=== PATIENT | male | born 1975 | race Caucasian/White ===

== ENCOUNTER 2025-06-27 16:47 | Emergency (ER) | payer MEDICAID ==
[~2025-06-27] VITALS: Ht 182.9 cm; Wt 83.0 kg
[2025-06-27 16:55] VITALS: BP 118/75; PULSE 85; RESP 16; TEMP 98.7; O2SAT 98
--- NOTE | 2025-06-27 19:10 | Physician Documentation ---
History of Present Illness ~ Chief Complaint: Eye Pain Stated Complaint: LT EYE PAIN Time Seen by MD: 18:01 HPI 49-year-old male presents to the ED with a complaint of left eye pain after reportedly getting a piece of wood dust in his eye yesterday. 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 Says this morning when he woke up his eye was stuck and then when he opened it causes increased pain reports blurry vision and pain with the blinking. He would state that he attempted to wash out his eye thoroughly Day of Onset: Jun 27, 2025 Medication Reconciliation Allergies: Coded Allergies: No Known Allergies (Unverified , 06/27/25) Scheduled Erythromycin Base Opth. Ointment* (Erythromycin Opth. Ointment*), 1 APPLIC LEFTEYE Q4HWA Review of Systems All Other Systems at this time: Reviewed and Negative ROS As stated above in the HPI, otherwise all systems are reviewed and negative. Physical Exam Vital Signs: Temperature: 98.7, Heart Rate: 85, Respiratory Rate: 16, BP: 118/75, Pulse Oximetry: 98, Weight: 83.000 Oxygen Flow Rate: 0 Physical Exam General: Alert, no apparent distress. HEENT: PERRL, EOMI, no injection, moist mucous membranes. Left eye conjunctiva injected and sclerae Skin: Normal color, warm and dry. No edema, no ecchymosis. Procedures Eye Procedure Alcaine Drops Administered: Yes Foreign Body/Rust Ring Removal: other Reexamination after removal: abrasion Cyclogel Drops Administered: left eye Progress Results/Orders Results/Orders Completed Orders - DEWAYNE HERNANDEZ NP Proparacaine Ophth Solution (Alcaine Oph (06/27/25 18:55) Medications Received in ER Medications (Trade) Dose Ordered Sig/Krystle Route PRN Reason Start Time Stop Time Status Last Admin Dose Admin (Alcaine ophth solution) 2 drop ONCE ONCE EACHEYE 06/27/25 18:55 06/27/25 18:56 DC 06/27/25 19:20 2 DROP Vital Signs 06/27/25 16:55 Temp 98.7 Pulse 85 Resp 16 B/P (MAP) 118/75 Pulse Ox 98 O2 Flow Rate 0 Departure Disposition: 01 HOME / SELF CARE / HOMELESS Impression: Primary Impression: Corneal abrasion Discharge Instructions: Corneal Abrasion Departure Forms: Excuse form Work or School Excused From: Work Excuse beginning now through the following date: Jun 29, 2025 Referrals: NO PRIMARY CARE PROVIDER (PCP) Prescriptions Erythromycin Base Opth. Ointment* (Erythromycin Opth. Ointment*) 1 Gm Tube 1 APPLIC RAVI Q4HWA, #1 EACH Prov: DEWAYNE HERNANDEZ NP 06/27/25 Signature Scribe Signature: g Attestation: Scribed for Dewayne Hernandez Sewing Trimmer by Dewayne Castillo NP . 06/27/25 19:12 DEWAYNE HERNANDEZ NP Jun 27, 2025 19:10
[2025-06-27] MEDS ORDERED: ERYT1OIN6 LEFTEYE (19:13)
[2025-06-27] MEDS: proparacaine 0.5% ophthalmic drops 15ml EACHEYE ONE (19:20)
== END 2025-06-27 19:30 | disposition home or self-care (01) ==
LOC: ER 16:48
DX: S05.02XA Injury of conjunctiva and corneal abrasion without foreign body, left eye, initial encounter (principal); X58.XXXA Exposure to other specified factors, initial encounter; Y93.89 Activity, other specified; Y92.89 Other specified places as the place of occurrence of the external cause; Y99.8 Other external cause status
CPT/HCPCS: 65220; 99283; 99284

== ENCOUNTER 2025-11-02 17:10 | Emergency (ER) | payer MEDICAID, OTHER ==
[~2025-11-02] VITALS: Ht 182.9 cm; Wt 100.0 kg
[2025-11-02 17:18] VITALS: BP 124/71; PULSE 85; O2SAT 100
--- NOTE | 2025-11-02 17:54 | RADIOLOGY REPORT ---
EXAM: DI ANKLE, COMPLETE(3VW MIN) HISTORY: ANKLE PAIN RIGHT COMPARISON: None TECHNIQUE: DI ANKLE, COMPLETE(3VW MIN) FINDINGS: Linear density through the calcaneus. No dislocation. IMPRESSION: 1. Linear density through the calcaneus may be artifactual or a nondisplaced fracture. Correlation with CT suggested.
--- NOTE | 2025-11-02 17:56 | RADIOLOGY REPORT ---
CLINICAL HISTORY: KNEE PAIN LEFT TECHNIQUE: 3 views of the right knee were obtained. COMPARISON: None FINDINGS: No acute fracture or dislocation is seen. No joint effusion is evident. There are no significant degenerative changes. IMPRESSION: NO ACUTE RADIOGRAPHIC ABNORMALITY OF THE RIGHT KNEE.
--- NOTE | 2025-11-02 19:00 | Physician Documentation ---
History of Present Illness ~ Chief Complaint: Knee Pain Stated Complaint: FALL Time Seen by MD: 18:48 HPI This is a 49-year-old male who presents with right ankle/heel pain and left knee pain after he fell from a single story roof landing on his feet, patient reports he sustained no injuries in the fall and did not strike his head. Patient reports that he was unable to walk or bear weight after the fall due to pain. Tetanus witin 5 years: No Medication Reconciliation Allergies: Coded Allergies: No Known Allergies (Unverified , 11/02/25) Scheduled PRN Hydrocodone Bit/Acetaminophen (Hydrocodon-Acetaminophn 10-325 tablet), 1 TAB PO QID PRN PRN for pain Past Medical History Past Medical History: No Pertinent History Review of Systems ROS As stated above in the HPI, otherwise all systems are reviewed and negative. Physical Exam Vital Signs: Temperature: 98.0, Source: Oral, Heart Rate: 85, Respiratory Rate: 18, BP: 124/71, Pulse Oximetry: 100, Weight: 100.000 Oxygen Flow Rate: 0 Physical Exam VITALS: Reviewed and as above. GENERAL: Alert, nontoxic appearing, no apparent distress. HEENT: PERRLA, EOMI, no C-spine tenderness RESPIRATORY: No increased work of breathing, no respiratory distress, speaking in full clear sentences, clear lung sounds in all mukherjee CHEST: Nontender to palpation CV: Regular rate and rhythm no murmur. Brisk capillary refill to bilateral feet, pedal pulses intact bilaterally BACK: Left lower lumbar tender to palpation, no central spinal tenderness, no step-offs, no crepitus GI: Soft, nontender, no rebound, no guarding, bowel sounds present MUSCULOSKELETAL: Swelling to left knee with medial aspect more swollen than lateral aspect, tenderness to medial and posterior aspect of the left knee, tenderness to right ankle and heel, no tenderness to forefoot SKIN: No ecchymosis or erythema to knees or feet NEURO: Sensation intact to bilateral lower extremities Progress Results/Orders Results/Orders Orders - CHELSEA BURR Ct Lower Extremity (11/02/25 19:15) Hip Unilateral 2-3 Views (11/02/25 19:32) Lumbar Spine Limited (11/02/25 19:32) Ortho Orders (11/02/25 20:48) Completed Orders - AMINAH,CHELSEA W [employer] Hydrocodone/Apap 10/325 ([place] 10/325mg (11/02/25 19:00) Ct Lower Extremity (11/02/25 19:15) Hip Unilateral 2-3 Views (11/02/25 19:32) Lumbar Spine Limited (11/02/25 19:32) Ketorolac Trometh 15mg/Ml Vial (Toradol (11/02/25 20:50) Vital Signs 11/02/25 11/02/25 11/02/25 11/02/25 17:18 19:08 20:59 21:09 Temp 98.0 98.0 Pulse 85 Resp 18 20 18 B/P (MAP) 124/71 Pulse Ox 100 O2 Flow Rate 0 EKG/XRAY/CT/US/VASC/MRI Bone/Soft Tissue X-Ray (Spine) : Additional Comment Exam: LUMBAR SPINE LIMITED CLINICAL HISTORY: Left lower lumbar back pain post fall from roof TECHNIQUE: 3 views of the lumbar spine were obtained. COMPARISON: None FINDINGS: The alignment of the lumbar spine is normal. The vertebral body heights and intervertebral disc spaces are well maintained. No acute fracture or dislocation is seen. IMPRESSION: NO ACUTE RADIOGRAPHIC ABNORMALITY OF THE LUMBAR SPINE. Electronically Signed by:NAVI ALBARRAN MD Date & Time: 11/02/251953 Dictated by: NAVI ALBARRAN MD Dictation date and time: 11/02/251953 I have reviewed and agree with the radiology report. I have reviewed and interpreted the imaging as: No vertebral fractures Bone/Soft Tissue X-Ray (Ext.) #1: Additional Comment Exam: HIP UNILATERAL 2-3 VIEWS CLINICAL HISTORY: Left hip pain post fall from roof TECHNIQUE: 2 views of the left hip were obtained. COMPARISON: None FINDINGS: No acute fracture or dislocation is seen. There are no significant degenerative changes. No significant soft tissue abnormality is seen. IMPRESSION: NO ACUTE RADIOGRAPHIC ABNORMALITY OF THE LEFT HIP. Electronically Signed by:NAVI ALBARRAN MD Date & Time: 11/02/251939 Dictated by: NAVI ALBARRAN MD Dictation date and time: 12/03/25 1920 I have reviewed and agree with the radiology report. I have reviewed and interpreted the imaging as: No fracture or dislocation Bone/Soft Tissue X-Ray (Ext.) #2: Additional Comment Exam: KNEE, COMP 4 VW MIN CLINICAL HISTORY: KNEE PAIN LEFT TECHNIQUE: 3 views of the right knee were obtained. COMPARISON: None FINDINGS: No acute fracture or dislocation is seen. No joint effusion is evident. There are no significant degenerative changes. IMPRESSION: NO ACUTE RADIOGRAPHIC ABNORMALITY OF THE RIGHT KNEE. Electronically Signed by:NAVI ALBARRAN MD Date & Time: 11/02/251752 Dictated by: NAVI ALBARRAN MD Dictation date and time: 11/02/251752 I have reviewed and agree with the radiology report. I have reviewed and interpreted the imaging as: No fracture or dislocation Bone/Soft Tissue X-Ray (Ext.) #3: Additional Comment Exam: ANKLE, COMPLETE(3VW MIN) EXAM: DI ANKLE, COMPLETE(3VW MIN) HISTORY: ANKLE PAIN RIGHT COMPARISON: None TECHNIQUE: DI ANKLE, COMPLETE(3VW MIN) FINDINGS: Linear density through the calcaneus. No dislocation. IMPRESSION: 1. Linear density through the calcaneus may be artifactual or a nondisplaced f racture. Correlation with CT suggested. Electronically Signed by:ROSALIO WHATLEY MD Date & Time: 11/02/251750 Dictated by: ROSALIO WHATLEY MD Dictation date and time: 11/02/251750 I have reviewed and agree with the radiology report. I have reviewed and interpreted the imaging as: No fracture or dislocation CT : Impression Exam: CT LOWER EXTREMITY CLINICAL HISTORY: Right ankle and heel pain TECHNIQUE: CT of the left lower extremity was performed without intravenous contrast. This exam was performed according to our departmental dose optimization program. Up-to-date CT equipment and radiation dose reduction techniques are utilized as appropriate. CTDI 16 mGy DLP 482 mGy.cm COMPARISON: DI ANKLE, COMPLETE(3VW MIN) on DOS: 11/02/25, DI KNEE, COMP 4 VW MIN on DOS: 11/02/25 FINDINGS: There is a minimally displaced 6 mm fracture of the right lateral malleolus tip, favor acute. The ankle mortise is intact. There is no tibiotalar joint effusion. The muscular volume is normal. There is moderate soft tissue edema. IMPRESSION: Acute minimally displaced right lateral malleolar fracture. Moderate soft tissue edema. Electronically Signed by:NAVI ALBARRAN MD Date & Time: 11/02/252018 Dictated by: NAVI ALBARRAN MD Dictation date and time: 11/02/252018 I have reviewed and agree with the radiology report. I have reviewed and interpreted the imaging as: Fracture to distal tip of lateral malleolus Medical Decision Making Additional information obtaine: N/A Findings This 49 male presented with right ankle/heel pain left knee pain after fell from a single story roof landing on his feet, patient reported no other injuries during fall and no other injuries found on physical exam. It was reassuring both limbs are neurovascularly intact, CT demonstrated minimally displaced right lateral malleolus tip fracture, no fracture or dislocation to left knee, we will treat as soft tissue injury to left knee. Right ankle placed in walking boot and patient placed on crutches to employer rest, ice, compression, elevation strategy for left knee. Patient is otherwise well-appearing remainder of physical exam benign appropriate for outpatient follow up. Patient discharged to follow up with on-call orthopedist in his primary care provider. Patient provided home care instructions return to care precautions and follow up instructions which he verbalized understanding of General Diff Dx:Considerations: Include: Abrasion, Contusion, Hematoma, Laceration, Neurovascular injury, Open fracture, Sprain Knee Diff Dx:Considerations: Include: Abrasion, Arthritis, Fracture-femur, Fracture-fibula, Fracture-patella, Fracture-tibia, Gout, Hematoma, Laceration, Meniscus injury, Neurovascular injury, Open fracture, Septic, Sprain, Sprain- MCL, Sprain-LCL, Sprain-ACL, Sprain-PCL Ankle Diff Dx:Considerations: Include: Abrasion, Arthritis, Contusion, DJD, Fracture-metatarsal, Fracture-fibula, Fracture-tarsal, Fracture-tibia, Gout, Hematoma, Laceration, Neurovascular injury, Open fracture, Osteomyelitis, Rheumatoid arthritis, Sprain, Septic Foot Diff Dx:Considerations: Include: Abrasion, Cellulitis, Contusion, Dislo cation, Fracture-metatarsal, Fracture-tarsal, Gout, Hematoma, Neurovascular injury Toe Diff Dx:Considerations: Unlikely: Abrasion, Cellulitis, Contusion, Dislocation, Felon, Fracture, Hematoma, Laceration, Neurovascular injury, Open f racture, Paronychia, Subungual hematoma, Other Departure Time of Disposition: 21:06 Disposition: 01 HOME / SELF CARE / HOMELESS Impression: Primary Impression: Fracture of right ankle, lateral malleolus Qualified Codes: S82.61XA - Displaced fracture of lateral malleolus of right fibula, initial encounter for closed fracture Additional Impression: Left knee pain Qualified Codes: M25.562 - Pain in left knee Condition: Improved Discharge Instructions: Ankle Fracture, [id number] Additional Instructions: Please follow up with the orthopedist at the number provided along with your primary care provider as you may need additional referral from your primary care for insurance reasons. You may bear weight on your foot as tolerated, avoid bearing weight on your knee. Please follow up with your primary care provider in the next few days. Please return to the emergency department for any new or worsening concerning symptoms. You may use [id number] ibuprofen and or Tylenol as needed for pain as directed by the [id number]-omo-beorbum packaging. For breakthrough pain you may use the prescribed [place], be aware that the [place] also contains the same active ingredient as Tylenol, so do not take more than the recommended amount of Tylenol as directed on the [id number] packaging. You have been prescribed an opioid medication, there are risks of addiction and overdose associated with the use of opioids. The risk of addiction to an opioid for increases for those suffering both from mental health and substance use disorders. The use of an opioid while taking other central nervous system depressants including but not limited to benzodiazepines or alcohol, or other opioids increases the risk of serious side effects that can include overdose or respiratory depression that can lead to serious injury or . Referrals: NO PRIMARY CARE PROVIDER (PCP) MARIA BROWN Jr., MD Prescriptions Hydrocodone Bit/Acetaminophen (Hydrocodon-Acetaminophn 10-325 tablet) 10mg- 325mg Tablet 1 TAB PO QID PRN PRN for pain for 3 Days, #12 TAB Prov: CHELSEA BURR [facility] 11/02/25 Education Educated: Patient Educated regarding: diagnosis, treatment, prognosis, need for follow up Signature Scribe Signature: No scribe Attestation: The note accurately reflects work and decisions made by me.ALEX Porter 11/04/25 02:10 CHELSEA BURR Nov 02, 2025 19:00
[2025-11-02] MEDS: HYDROcodone/acetaminophen 10/325mg tab PO ONE (19:08)
--- NOTE | 2025-11-02 19:43 | RADIOLOGY REPORT ---
CLINICAL HISTORY: Left hip pain post fall from roof TECHNIQUE: 2 views of the left hip were obtained. COMPARISON: None FINDINGS: No acute fracture or dislocation is seen. There are no significant degenerative changes. No significant soft tissue abnormality is seen. IMPRESSION: NO ACUTE RADIOGRAPHIC ABNORMALITY OF THE LEFT HIP.
--- NOTE | 2025-11-02 19:56 | RADIOLOGY REPORT ---
CLINICAL HISTORY: Left lower lumbar back pain post fall from roof TECHNIQUE: 3 views of the lumbar spine were obtained. COMPARISON: None FINDINGS: The alignment of the lumbar spine is normal. The vertebral body heights and intervertebral disc spaces are well maintained. No acute fracture or dislocation is seen. IMPRESSION: NO ACUTE RADIOGRAPHIC ABNORMALITY OF THE LUMBAR SPINE.
--- NOTE | 2025-11-02 20:22 | RADIOLOGY REPORT ---
CLINICAL HISTORY: Right ankle and heel pain TECHNIQUE: CT of the left lower extremity was performed without intravenous contrast. This exam was performed according to our departmental dose optimization program. Up-to-date CT equipment and radiation dose reduction techniques are utilized as appropriate. CTDI 16 mGy DLP 482 mGy.cm COMPARISON: DI ANKLE, COMPLETE(3VW MIN) on DOS: 11/02/25, DI KNEE, COMP 4 VW MIN on DOS: 11/02/25 FINDINGS: There is a minimally displaced 6 mm fracture of the right lateral malleolus tip, favor acute. The ankle mortise is intact. There is no tibiotalar joint effusion. The muscular volume is normal. There is moderate soft tissue edema. IMPRESSION: Acute minimally displaced right lateral malleolar fracture. Moderate soft tissue edema.
[2025-11-02 20:59] VITALS: RESP 18
[2025-11-02] MEDS: ketorolac trometh 15mg/ml vial 15 MG/ML ML IM ONE (20:59)
[2025-11-02 21:09] VITALS: TEMP 98
[2025-11-02] MEDS ORDERED: HYDR-3972 PO (21:11)
== END 2025-11-02 21:14 | disposition home or self-care (01) ==
LOC: ER 17:10
DX: S82.61XA Displaced fracture of lateral malleolus of right fibula, initial encounter for closed fracture (principal); M25.562 Pain in left knee; W17.89XA Other fall from one level to another, initial encounter; Y93.89 Activity, other specified; Y92.89 Other specified places as the place of occurrence of the external cause; Y99.8 Other external cause status
CPT/HCPCS: 72100; 73502; 73564; 73610; 73700; 96372; 99285; J1885; L4360; A6449